=== PATIENT | male | born 1960 | race Caucasian/White ===

== ENCOUNTER 2016-10-26 12:42 | Emergency (ER) | payer MEDICARE, OTHER ==
[~2016-10-26] VITALS: Ht 167.6 cm; Wt 69.0 kg
[2016-10-26] MEDS ORDERED: GLUCAGON,HUMAN RECOMBINANT 1 MG VIAL IM ONE (13:00)
[2016-10-26 13:59] VITALS: BP 140/96
== END 2016-10-26 14:02 | disposition home or self-care (01) ==
LOC: EMS 12:44
DX: K22.2 Esophageal obstruction (principal); K44.9 Diaphragmatic hernia without obstruction or gangrene
CPT/HCPCS: 99283; J1610

== ENCOUNTER 2020-01-01 07:33 | Emergency (ER) | payer OTHER ==
[~2020-01-01] VITALS: Ht 167.6 cm; Wt 81.8 kg
[2020-01-01] MEDS ORDERED: [UNRECOGNIZED DRUG - REMARK] (07:40)
[2020-01-01] MEDS ORDERED: AZIT-104 PO (07:40)
[2020-01-01] MEDS ORDERED: DEXA4 PO (07:40)
[2020-01-01] MEDS ORDERED: ALPR0.255 PO (07:42)
[2020-01-01] MEDS ORDERED: OMEP20 PO (07:42)
[2020-01-01] MEDS ORDERED: CITA10TA99 PO (07:42)
[2020-01-01 07:51] VITALS: BP 119/71
== END 2020-01-01 08:10 | disposition home or self-care (01) ==
LOC: EMS 07:38
DX: U07.1 COVID-19 (principal); F41.9 Anxiety disorder, unspecified; I10 Essential (primary) hypertension; K21.9 Gastro-esophageal reflux disease without esophagitis
CPT/HCPCS: 99283; U0003

== ENCOUNTER 2020-01-21 17:41 | Emergency (ER) | payer OTHER ==
[~2020-01-21] VITALS: Ht 167.6 cm; Wt 81.8 kg
[~2020-01-21 17:41] MED LIST: ALPR0.255 PO; AZIT-104 PO; CITA10TA99 PO; DEXA4 PO; OMEP20 PO; [UNRECOGNIZED DRUG - REMARK]
[2020-01-21 17:47] VITALS: BP 117/80
[2020-01-21] MEDS ORDERED: OLME20TA10 PO (17:49)
[2020-01-21] MEDS ORDERED: TAMS-13 PO (17:49)
== END 2020-01-21 18:33 | disposition home or self-care (01) ==
LOC: EMS 17:41
DX: Z11.59 Encounter for screening for other viral diseases (principal); K21.9 Gastro-esophageal reflux disease without esophagitis; I10 Essential (primary) hypertension; F41.9 Anxiety disorder, unspecified
CPT/HCPCS: Z7502